=== PATIENT | male | born 1950 | race Caucasian/White ===

== ENCOUNTER 2017-09-21 09:27 | Emergency (ER) | payer MEDICARE, OTHER, SELFPAY ==
[2017-09-21 09:29] VITALS: BP 172/89; PULSE 92; RESP 16; TEMP 36.8; O2SAT 93; BMI 27.3
[2017-09-21 09:32] VITALS: PULSE 91; RESP 16; O2SAT 94
--- NOTE | 2017-09-21 09:47 | ED.DCSUM_ITS ---
- ER Visit Summary Date of Service: 09/21/17 Chief Complaint: Unable to urinate History of Present Illness: The patient is a 67 M for prostate cancer 2 years ago treated by seed implants. Patient states he was cured. Since 530 to 7:00 last night he has been unable to urinate. He [facility] went to [facility] and they were unable to Place Car catheter and he was transferred here to [facility]. He states he has had to have a Car catheter before in the past. He states that over the last several days until last evening he was not having any trouble urinating recently. Physical Examination: Well-appearing older male. Vital signs are stable afebrile. H EENT exam is unremarkable. Neck nontender no lymphadenopathy. Lungs clear to auscultation bilaterally. Abdomen is soft. He does appear to have a distended bladder. But he really did not complain of much abdominal pain with palpation. External exam is unremarkable. He is circumcised. He is moving all 4 extremities. There is no edema. Neurologically is awake alert without focal motor deficits. Test Results: [] Emergency Department Course and Treatment: Nurses will attempt to place a Car catheter. Nurse attempted a coud? catheter was unsuccessful. I spoke to Dr. Blas renee of urology and he will come down the ER and place a Car catheter. Treatment Plan: From urology came down was able to place a Car catheter. Patient will be discharged home with a catheter and follow-up with his urologist in [place]. He will be placed on Keflex 4 times a day for 10 days. Disposition: Discharge Impression: Acute urinary retention History of prior bladder CA Catheter placed by urologist This note was generated with [employer] dictation software. It may contain incorrect words, spelling, and punctuation that were not noted in review of the chart prior to signing ED Disposition - Plan for ED Patient: Chief Complaint: Complaint Referrals: [facility] Doctor,Out of [Primary Care Provider] -
[2017-09-21] MEDS: Lidocaine Jelly 2% 20 ML Syringe (URO-JET) 20 APPLIC TOPICAL (09:58)
--- NOTE | 2017-09-21 10:24 | ED.RN ---
Attempted to place 14F coude catheter without success. Per patient, last time he needed catheter, the urologist had to place it. After removal of catheter, small amount of bright red blood noted from meatus. Dr. Flores aware of inability to place whittington. Await urology call back.
[2017-09-21 11:00] VITALS: BP 183/99; PULSE 92; RESP 18; O2SAT 94
--- NOTE | 2017-09-21 12:23 | PCM.CONS.U ---
Reason for Consult Date of Consultation: 09/21/17 Reason for Consultation: Urinary retention and unable to place whittington History of Present Illness: The patient is a 67 year old male with prostate cancer h/o brachytherapy treated by urologist in [facility] unable to place whittington, came in and used a urology kit able to pass a wire into the bladder and dilate urethral stricture and prostatic stricture whittington then placed 16 fr whittington. Past Medical History Allergies No Known Allergies Allergy (Verified 09/21/17 09:53) Home Medications: Ambulatory Orders Medication Instructions Recorded Ascorbic Acid [Vitamin C] 500 mg PO BID 09/21/17 Aspirin E.C. [Ecotrin] 325 mg PO DAILY 09/21/17 Atenolol 50 mg PO DAILY 09/21/17 Cyanocobalamin [Vitamin B12] 1,000 mcg IM Q14D 09/21/17 Donepezil HCl 10 mg PO DAILY 09/21/17 Fenofibrate 200 mg PO DAILY 09/21/17 Ferrous Sulfate 325 mg PO BIDCM 09/21/17 Glyburide 5 mg PO BID 09/21/17 Magnesium Hydroxide [Milk Of 30 ml PO BID PRN PRN 09/21/17 Magnesia] Surgical History: - - brachy therapy Psychiatric History: No pertinent psych hx Lives: Alone Smoking Status: Never smoker Tobacco Use: Non-smoker Alcohol: None Drugs: None - *Family History Maternal History Items: No pertinent history Review of Systems Constitutional: Denies: Chills, Fever, Weight Change HEENT: Denies: Head Aches, Sinus Congestion, Sinus Drainage Cardiovascular: Denies: Chest Pain, Palpitations Respiratory: Denies: Cough, Shortness of breath at rest, Sputum production Gastrointestinal: Denies: Abdominal Pain, Nausea, Vomiting Genitourinary: Reports: Incontinence, Retention Musculoskeletal: Denies: Joint Pain, Joint Tenderness Skin: Denies: Rash, Wounds Neurological: Denies: Numbness, Tingling, Focal weakness Psychiatric: Denies: Anxiety, Depression, Homicidal Ideations, Suicidal Ideations Hematologic/ Lymphatic: Denies: Easy Bruising, Easy Bleeding Physical Exam - Physical Exam Vital Signs Temp 98.3 F 09/21/17 09:29 Pulse 92 09/21/17 11:00 Resp 18 09/21/17 11:00 BP 183/99 H 09/21/17 11:00 Pulse Ox 94 09/21/17 11:00 Intake & Output 09/19/17 09/20/17 09/21/17 23:59 23:59 23:59 Weight: 81.647 kg General: Alert, Oriented x3 HEENT: Atraumatic Oral: Moist Mucosa Neck: Supple Lungs: Normal air movement Cardiovascular: Regular rate, Regular Rhythm Abdomen: Soft Rectal: Exam deferred Penis: Circumcised Groin: No hernia Extremities: No clubbing, No cyanosis, No edema Skin: No rashes Musculoskeletal: No Tenderness to Palpation of Joints or Extremities Assessment/Plan urethral stricture prostate cancer whittington placed today home with whittington follow up with urologist in [place] rx for antibiotics for 7 days.
--- NOTE | 2017-09-21 12:27 | CON.PCM_ITS ---
Reason for Consult Date of Consultation: 09/21/17 Reason for Consultation: Urinary retention and unable to place whittington History of Present Illness: The patient is a 67 year old male with prostate cancer h/o brachytherapy treated by urologist in [facility] unable to place whittington, came in and used a urology kit able to pass a wire into the bladder and dilate urethral stricture and prostatic stricture whittington then placed 16 fr whittington. Past Medical History Allergies No Known Allergies Allergy (Verified 09/21/17 09:53) Home Medications: Ambulatory Orders Medication Instructions Recorded Ascorbic Acid [Vitamin C] 500 mg PO BID 09/21/17 Aspirin E.C. [Ecotrin] 325 mg PO DAILY 09/21/17 Atenolol 50 mg PO DAILY 09/21/17 Cyanocobalamin [Vitamin B12] 1,000 mcg IM Q14D 09/21/17 Donepezil HCl 10 mg PO DAILY 09/21/17 Fenofibrate 200 mg PO DAILY 09/21/17 Ferrous Sulfate 325 mg PO BIDCM 09/21/17 Glyburide 5 mg PO BID 09/21/17 Magnesium Hydroxide [Milk Of 30 ml PO BID PRN PRN 09/21/17 Magnesia] Surgical History: - - brachy therapy Psychiatric History: No pertinent psych hx Lives: Alone Smoking Status: Never smoker Tobacco Use: Non-smoker Alcohol: None Drugs: None - *Family History Maternal History Items: No pertinent history Review of Systems Constitutional: Denies: Chills, Fever, Weight Change HEENT: Denies: Head Aches, Sinus Congestion, Sinus Drainage Cardiovascular: Denies: Chest Pain, Palpitations Respiratory: Denies: Cough, Shortness of breath at rest, Sputum production Gastrointestinal: Denies: Abdominal Pain, Nausea, Vomiting Genitourinary: Reports: Incontinence, Retention Musculoskeletal: Denies: Joint Pain, Joint Tenderness Skin: Denies: Rash, Wounds Neurological: Denies: Numbness, Tingling, Focal weakness Psychiatric: Denies: Anxiety, Depression, Homicidal Ideations, Suicidal Ideations Hematologic/ Lymphatic: Denies: Easy Bruising, Easy Bleeding Physical Exam - Physical Exam Vital Signs Temp 98.3 F 09/21/17 09:29 Pulse 92 09/21/17 11:00 Resp 18 09/21/17 11:00 BP 183/99 H 09/21/17 11:00 Pulse Ox 94 09/21/17 11:00 Intake & Output 09/19/17 09/20/17 09/21/17 23:59 23:59 23:59 Weight: 81.647 kg General: Alert, Oriented x3 HEENT: Atraumatic Oral: Moist Mucosa Neck: Supple Lungs: Normal air movement Cardiovascular: Regular rate, Regular Rhythm Abdomen: Soft Rectal: Exam deferred Penis: Circumcised Groin: No hernia Extremities: No clubbing, No cyanosis, No edema Skin: No rashes Musculoskeletal: No Tenderness to Palpation of Joints or Extremities Assessment/Plan urethral stricture prostate cancer whittington placed today home with whittington follow up with urologist in [place] rx for antibiotics for 7 days.
--- NOTE | 2017-09-21 12:41 | ED.DEP ---
ED Disposition - Plan for ED Patient: Disposition: Home or Assisted Living Chief Complaint: Complaint Instructions: ED Retention Urinary Male Prescriptions: Cephalexin [Keflex] 500 mg PO Q6 #40 cap Referrals: [facility] Doctor,Out of [Primary Care Provider] - Additional Instructions: Call and follow-up with your urologist in [place]. Keflex antibiotic 4 times a day. Till gone. If your catheter stops working return. Drink plenty of water to dilute the blood.
[2017-09-21 13:36] VITALS: BP 161/78; PULSE 80; RESP 16; O2SAT 97
--- NOTE | 2017-09-21 14:32 | NURSING ---
pt daughter was called and notified about care provided. daughter was unable to brain picker father until after 1600. multiple private transport agencies called to transport patient back to nursing facility. unable to transport till after 1730. Daughter is coming to brain picker patient after work due to prolonged wait for private transport.
[2017-09-21 15:41] VITALS: PULSE 78; RESP 16; O2SAT 98
== END 2017-09-21 16:25 | disposition home or self-care (01) ==
PROVIDERS: Emergency Provider Emergency Medicine
DX: R33.9 Retention of urine, unspecified (principal); E11.9 Type 2 diabetes mellitus without complications; I10 Essential (primary) hypertension; Z86.73 Personal history of transient ischemic attack (TIA), and cerebral infarction without residual deficits; Z85.51 Personal history of malignant neoplasm of bladder; Z85.46 Personal history of malignant neoplasm of prostate
CPT/HCPCS: 87086; 87088; 99284

== ENCOUNTER 2021-12-10 07:51 | Day surgery (SDC) | payer MEDICARE, OTHER, SELFPAY ==
--- NOTE | 2021-12-03 09:25 | NURSING ---
This RN spoke with Sofy at [facility]. Provided instructions regarding NPO status and medications to be administered on day of surgery. Dr. Paula's orders for blood work and EKG provided to Sofy via phone, nurse to facilitate obtaining blood work and EKG by 12/05 and will fax results promptly.
[2021-12-10] VITALS (7 sets, daily range): BP systolic 115–155; BP diastolic 70–85; PULSE 59–65; RESP 16; TEMP 36.4–37.3; O2SAT 93–95; BMI 31.5
--- NOTE | 2021-12-10 08:49 | PCM.HP.BLA ---
History and Physical Date of Admission: 12/10/21 Visit Reasons:?AVF PLACEMENT VM AT [facility] Chief Complaint: fistula consult Home Demonstration Agent Required: No Is patient in pain?: No Allergies No Known Allergies Allergy (Verified 11/26/21 14:59) Medications ascorbic acid (vitamin C) 500 mg capsule 500 mg PO BID 09/21/17 [History Confirmed 09/21/17] aspirin 325 mg tablet,delayed release 325 mg PO DAILY 09/21/17 [History Confirmed 11/26/21] atenolol 50 mg tablet 50 mg PO DAILY 09/21/17 [History Confirmed 11/26/21] cyanocobalamin (vitamin B-12) 1,000 mcg/mL injection solution 1,000 mcg IM Q14D 09/21/17 [History Confirmed 11/26/21] donepezil 10 mg tablet 10 mg PO DAILY 09/21/17 [History Confirmed 11/26/21] fenofibrate 150 mg capsule 200 mg PO DAILY 09/21/17 [History Confirmed 11/26/21] ferrous sulfate 325 mg (65 mg iron) tablet 325 mg PO BIDCM 09/21/17 [History Confirmed 09/21/17] glyburide 5 mg tablet 5 mg PO BID 09/21/17 [History Confirmed 09/21/17] magnesium hydroxide 400 mg/5 mL oral suspension 30 ml PO BID PRN PRN Constipation 09/21/17 [History Confirmed 09/21/17] amlodipine 10 mg tablet 10 mg PO DAILY 11/26/21 [History Confirmed 11/26/21] ascorbic acid (vitamin C) 500 mg capsule 500 mg PO BID 11/26/21 [History Confirmed 11/26/21] carbidopa ER 25 mg-levodopa 100 mg tablet,extended release 1 tab PO TID 11/26/21 [History Confirmed 11/26/21] cholecalciferol (vitamin D3) 125 mcg (5,000 unit) capsule 125 mcg PO DAILY 11/26/21 [History Confirmed 11/26/21] famotidine 20 mg tablet 20 mg PO DAILY 11/26/21 [History Confirmed 11/26/21] finerenone 20 mg tablet (Kerendia) 20 mg PO DAILY 11/26/21 [History Confirmed 11/26/21] insulin aspart U-100 100 unit/mL (3 mL) subcutaneous pen (Novolog Flexpen U-100 Insulin aspart) 15 unit subcut BID 11/26/21 [History Confirmed 11/26/21] insulin degludec 100 unit/mL (3 mL) subcutaneous pen (Tresiba FlexTouch U-100 insulin) 34 unit subcut QHS 11/26/21 [History Confirmed 11/26/21] mirtazapine 15 mg tablet 15 mg PO QHS 11/26/21 [History Confirmed 11/26/21] multivitamin 1 tab PO DAILY 11/26/21 [History Confirmed 11/26/21] simvastatin 20 mg tablet 20 mg PO DAILY 11/26/21 [History Confirmed 11/26/21] PFSH Medical History?(Updated 11/26/21 @ 14:57 by Toña Mathew) CVA (cerebral vascular accident) Diabetes GERD (gastroesophageal reflux disease) History of prostate cancer History of retinal detachment History of sepsis HTN (hypertension) Hyperlipidemia Surgical History?(Updated 11/26/21 @ 14:57 by Toña Mathew) History of bilateral knee arthroplasty History of detached retina repair History of prostate biopsy Family History?(Updated 11/26/21 @ 14:58 by Toña Mathew) Father Diabetes CVA (cerebral vascular accident)Mother DiabetesBrother Colon cancer Social History Smoking Status:? Never smoker HPI HPI HPI: NADER PEGUERO, is a 71 M who presents to the office today for surgical consultation for creation of arteriovenous hemodialysis fistula.? The patient is referred by Dr Markus Durant? and a written copy of my consult and recommendations will return to him.? The patient's creatinine clearance is 18 cc a minute.? 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 He has Parkinson's disease and has a right hand tremor.? He is right arm dominant. On November 25, 2021 at [facility] he had bilateral upper extremity vein mapping.? The left upper arm basilic vein seemingly was of adequate diameter throughout.? Left upper arm basilic vein smaller than normal.? The right upper extremity cephalic vein appears to be adequate throughout.? The right upper arm basilic vein adequate as well. The patient wears a watch in the left arm. ROS General General: No weight change, appetite, fatigue, colon cancer, breast cancer or weakness HEENT HEENT: No difficulty swallowing, eye injury, eye surgery, swollen glands or hoarseness Endo Endocrine: Yes diabetes mellitus; No thyroid disease, thyroid cancer, Hair loss, heat intolerance or cold intolerance Breast Breast: No left breast lump, right breast lump, nipple discharge, breast pain, abnormal mammogram, abnormal US or breast enlargement Musc Musculoskeletal: No back problems, arthritis, rheumatoid arthritis, gout or joint pain Cardio Cardiovascular: Yes high blood pressure; No murmur, pacemaker, heart disease, atrial fibrillation, heart attack, heart stent, palpitations, shortness of breat with exertion or chest pain Psych Psychiatric: No depression, anxiety or hearing voices Resp Respiratory: No shortness of breath, No sleep apnea, No cough, No COPD, No asthma, No emphysema and No wheezing Gastro Gastrointestinal: No abdominal pain, No nausea or vomiting, No diarrhea, No constipation, No blood in stool, No acid reflux, No hemorrhoids, No ulcers, No gallbladder problem and No black,tarry stools Barrera Hematologic: No blood thinners, No blood disorders, No bleeding, No anemia and No blood clots Neuro Neurologic: No weakness Exam Const General: cooperative Nutritional Appearance: obese Orientation: alert and awake [facility] Head: normal to inspection Neck Neck: normal visual inspection Carotids: normal carotid upstroke and no bruits Chest Chest palpation & inspection: normal inspection of the chest Resp Effort & Inspection: normal respiratory effort Auscultation: clear to auscultation bilaterally Cardio Rate: regular rate Rhythm: regular rhythm GI Palpation: soft and no hepatosplenomegaly Musc Other: Mild cervical kyphosis Skin Other: 2 mm superficial ulcer left radial wrist at site of wrist watch wearing Neuro General: patient alert and patient awake Extrem Other: Normal Jakob test left hand.? 3+ left radial pulse.? Imaging with ultrasound of the cephalic vein of the forearm demonstrates adequate diameter and depth and compressibility Psych Appearance: grossly normal Assessment and Plan Assessment and Plan (1) Chronic renal insufficiency, stage IV (severe): ?Status:?Chronic ?Plan: I recommended the patient have a left forearm radiocephalic arteriovenous hemodialysis fistula creation.? I have instructed him to immediately stop wearing his watch so that the area of slight irritation has a chance to heal.? We have placed a bracelet on his left wrist.? He is aware that he is not have any further blood draws or IVs in the left arm.? Based upon the artery and vein I think that there is a good opportunity to create a functioning arteriovenous hemodialysis fistula.? The patient is aware of the technique, benefit, risk and alternatives.? No guarantees of success have been offered. We will schedule and proceed at his discretion.? I appreciate the opportunity of assisting with the surgical care. Copy: Dr Markus Durant and Dr. Dyllan Paula M.D., F.A.C.S. I have re-examined the patient. There are no clinical changes since date of exam. Arash Paula M.D., F.A.C.S.
--- NOTE | 2021-12-10 08:50 | DCINST_ITS ---
Discharge Instructions Procedure Fistula Diet Discharge Diet: Renal Diet Activity Discharge Activity: May Not Drive (for 2-3 days or while taking narcotic pain medications.), May Shower and May Take a Tub Bath (in 5 days.) Lifting Restrictions: 5 pounds Keep extremity elevated above heart level: - (Keep arm elevated above the heart level for 3 days.) Dressing / Incision Call your doctor if your incision/area has: Continuous Slow Oozing, Sudden Increased Bleeding (apply pressure and call your doctor.), Increased Pain/ Swelling, Increased Redness and Foul Smelling Discharge Call your doctor if you observe: Fever of 101 or Higher Suture Line Care: Avoid Pulling/Pushing and Avoid Pinching/Bending Cleanse incision/area with: Keep Dressing Clean & Dry Additional Dressing/Incision Instructions:: Change or remove dressing in one day. May protect with a gauze bandaid. Follow Up Care Please Follow Up With: Arash Paula MD When: Call [phone] to make an appointment for suture removal and follow up in 1 week. Test Results: Test results from this visit will be discussed in further detail at your follow- up appointment, if applicable. Discharge Plan Admission Attending Provider: Arash Paula Primary Care Provider: Tamie Mijares Discharge Orders/Prescriptions Prescriptions: No Action amlodipine 10 mg tablet 10 mg PO DAILY carbidopa-levodopa 25-100 mg tablet extended release 1 tab PO TID famotidine 20 mg tablet 20 mg PO DAILY mirtazapine [Remeron] 15 mg tablet 15 mg PO QHS Tresiba FlexTouch U-100 100 unit/mL (3 mL) insulin pen 34 unit subcut QHS insulin aspart U-100 [Novolog Flexpen U-100 Insulin] 100 unit/mL (3 mL) insulin pen 15 unit subcut BID simvastatin 20 mg tablet 20 mg PO DAILY Kerendia 20 mg tablet 20 mg PO DAILY multivitamin Tablet 1 tab PO DAILY cholecalciferol (vitamin D3) 125 mcg (5,000 unit) capsule 125 mcg PO DAILY glyburide 5 MG tablet 5 mg PO BID donepezil [Aricept] 10 MG tablet 10 mg PO DAILY magnesium hydroxide [Milk of Magnesia] 30 ML suspension 30 ml PO BID PRN PRN (Reason: Constipation) aspirin 325 MG tablet 325 mg PO DAILY cyanocobalamin (vitamin B-12) 1,000 MCG/ML solution 1,000 mcg IM Q14D ferrous sulfate 325 MG tablet 325 mg PO BIDCM atenolol 50 MG tablet 50 mg PO DAILY fenofibrate 150 MG capsule 200 mg PO DAILY ascorbic acid (vitamin C) 500 MG capsule 500 mg PO BID Referrals / Follow Up: Tamie Mijares MD [Primary Care Provider] - Disposition Disposition (needs filled in before D/C Order can be placed): Home, Self Care
[2021-12-10] MEDS: Lactated Ringers 1,000 ML 15 ML IV (08:53)
[2021-12-10] MEDS: Lidocaine 1% (20 ml mdv) 20 ML Vial (10:02)
[2021-12-10] MEDS: Bupivacaine 0.25% 30 ML Vial (10:02)
[2021-12-10] MEDS: Heparin Injection (Vial) 5,000 UNIT/ML VIAL 5000 UNIT (10:02)
[2021-12-10 10:06] LABS: Bedside Glucose 139 mg/dL (74-106)
--- NOTE | 2021-12-10 11:12 | OP.PCM_ITS ---
Report of Operation Date of Procedure: 12/10/21 Pre-Operative Diagnosis: Stage IV chronic renal sufficiency Post-Operative Diagnosis: Same Surgery/Procedure Performed:: Left upper extremity radial to cephalic arteriovenous hemodialysis fistula creation Description of Surgical Findings:: Timeout informed consent was obtained. 79-year-old gentleman was taken to the operating placed on the table underwent monitored anesthesia care. Clean p rocedure no antibiotics required. The left upper extremity was sterilely prepped and draped. Ultrasound has been performed and vein mapping performed at a point of cephalic vein branching to facilitate the fistula creation. Upper extremity sterilely prepped draped. 1% lidocaine mixed 50-50 with 0.255% Marcaine was used as a local anesthetic. Total 10 cc was used. Local was instilled slightly oblique incision was created sharp and blunt dissection was used to dissect free the cephalic vein. I did more proximal dissection as a means of transposing it to a degree closer to the dermis. Identified a smaller sidebranch which after further visualization was a smaller of the 2 outflow channels and so I put a clip on that. Dissected the vein free completely per tickly at the branch point. I then did sharp and blunt dissection used to identify the radial artery and I elevated that for a small distance. Hemoclips were used for hemostasis. The patient then received 9000 units of heparin. The vein was transected at the branch point and then I spatulated that to allow for a more generous anastomosis. The artery had peripheral vascular clamps placed proximally distally and 11 blade was used to make an arteriotomy which was extended with Rai scissors. A end-to-side venous to arterial anastomosis was created with a running 7-0 Prolene. Prior to completion of there is good ante grade retrograde flow. The anastomosis was completed was immediately hemostatic. There was a 2+ radial pulse distally and a viable hand. There was a good pulse and thrill within the fistula and Doppler inspection demonstrated good flow in the volar forearm. Hemostasis was intact. The subcutaneous tissues were approximated interrupted 3-0 Vicryl subcu dermal stitches. Skin edges approximated with a running septic layer 4-0 Monocryl. Steri-Strips Telfa OpSite dressings applied. Sponge and instrument and needle counts were reported to the surgeon to be correct. Specimens none. Drains none. Blood loss minimal. The patient was taken to the recovery area in satisfactory addition without apparent complication Arash Paula M.D., F.A.C.S. Surgeon: Arash Paula Type of Anesthesia: Local MAC Anesthesiologist: Edison Arana
== END 2021-12-10 12:35 | disposition home or self-care (01) ==
LOC: SDC 08:05 → AC 08:05
PROVIDERS: PCP Internal Medicine; Referring Provider Surgery; Visit Provider Surgery
PROC: (CPT 36821; principal; 2021-12-10 09:45)
DX: I12.9 Hypertensive chronic kidney disease with stage 1 through stage 4 chronic kidney disease, or unspecified chronic kidney disease (principal); G20 Parkinson's disease; N18.4 Chronic kidney disease, stage 4 (severe); E11.9 Type 2 diabetes mellitus without complications; N13.9 Obstructive and reflux uropathy, unspecified; Z86.73 Personal history of transient ischemic attack (TIA), and cerebral infarction without residual deficits; K21.9 Gastro-esophageal reflux disease without esophagitis; E78.5 Hyperlipidemia, unspecified; Z85.46 Personal history of malignant neoplasm of prostate; Z86.69 Personal history of other diseases of the nervous system and sense organs
CPT/HCPCS: 36821; 01844; 82962; J7120; J2405